=== PATIENT | female | born 1970 | race Caucasian/White ===

== ENCOUNTER → 2018-09-17 11:01 | Outpatient (CLI) | payer OTHER, SELFPAY ==
--- NOTE | 2018-09-16 17:27 | PCM.HP.BLA ---
History and Physical Date of Admission: 09/17/18 HISTORY AND PHYSICAL - BREAST COMPLAINT ? Jody Le 1970 ? ? REFERRING PHYSICIAN: ??Kyra Barrios ([facility]), APR* ? CHIEF COMPLAINT:???Abnormal breast imaging-microcalcifications right breast, asymmetry left breast ? HPI: The patient is a 48 year old female with a complaint of?an abnormal mammogram. ?The patient had a mammogram with ultrasound on August 20, 2018 as a follow-up from mammography performed on July 31, 2018 with her previous mammogram performed on July 30, 2017. ? Imaging demonstrated: ? IMPRESSION: SUSPICIOUS OF MALIGNANCY The multiple new calcifications in the right breast inferior medial quadrant middle depth are at an intermediate suspicion for malignancy. ?A stereotactic biopsy is recommended. The asymmetry in the left breast anterior depth inferior region seen on the mediolateral oblique view only is probably benign. ?A follow-up mammogram in 6 months is recommended. ? LIMITED ULTRASOUND OF LEFT BREAST: 08/20/2018 RESULT: Comparison is made to exams dated: ?07/31/2018 mammogram, 07/30/2017 mammogram - [facility], 08/23/2016 mammogram [facility], 07/24/2016 mammogram, and 07/08/2015 mammogram [facility]. ?Real-time ultrasound of the left breast lower aspect was performed. ? Díaz scale images of the real-time examination were reviewed. No abnormalities were seen sonographically in the left breast. IMPRESSION: NEGATIVE There is no sonographic evidence of malignancy. SUMMARY: Findings and recommendations discussed with the patient. Patient scheduled for a surgical consult. Surgical consult for biopsy of calcifications in the RIGHT breast. ? RESULT: TECHNIQUE: The study was acquired using full field digital technology and interpreted from soft copy. Current study was also evaluated with a Computer Aided Detection (CAD). Comparison is made to exams dated: ?07/31/2018 mammogram, 07/30/2017 mammogram [facility], 08/23/2016 mammogram [facility], 07/24/2016 mammogram, and 07/08/2015 mammogram [facility]. ?The tissue of both breasts is heterogeneously dense. This may lower the sensitivity of mammography. There are multiple new calcifications in the right breast inferior medial quadrant middle depth. There is an asymmetry in the left breast anterior depth inferior region seen on the mediolateral oblique view only. ?This is less prominent. No other significant masses or calcifications are seen in either breast. ? The patient denies a history of breast masses. ?She does??perform a self breast exam routinely. ?She notes no skin changes. ?She denies nipple discharge. ?She notes no axillary masses. ?She notes no family history of breast problems. ?She notes no significant breast trauma or breast difficulties in the past. ?She did undergo breast reduction surgery in the past.??She had a complication of a hematoma in the subareolar area of the left breast. ?The left breast is slightly denser and smaller than her right breast. ? The patient has had?0?pregnancies. ??Her last mammogram was 2017. ?Her last menstrual period was 2017. ?Her first menstrual period was at age 12. ? The patient is being seen by me today at the request of?Kyra Barrios ([facility]), APR*?my opinion and advice regarding new microcalcifications in the right breast and question will asymmetry in the left breast.?? ? PAST?MEDICAL?HISTORY PAST MEDICAL HISTORY Diagnosis Date ? BCC (basal cell carcinoma) ? ? 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 Bruno; sees yearly ? Broken ankle ? ? Broken foot ? ? Essential hypertension, benign ? ? HTN (hypertension) ? ? white coat HTN ? Panic disorder ? ? resolved ? ? PAST?SURGICAL?HISTORY PAST SURGICAL HISTORY Procedure Laterality Date ? ESWL FOR GALLSTONES ? ? ? INCIS TENDON SHEATH,RADIAL STYLOID Right 04/26/2018 ? Right 1st dorsal compartment release ? REDUCTION OF LARGE BREAST ? ? ? REVISE MEDIAN N/CARPAL TUNNEL SURG Right 11/02/2017 ? Right carpal tunnel release ? REVISE MEDIAN N/CARPAL TUNNEL SURG Left 11/16/2017 ? Left carpal tunnel release ? TONSILLECTOMY HX ? CURRENT?MEDICATIONS Current Outpatient Medications Medication Sig Dispense Refill ? amLODIPine (NORVASC) 5 mg tablet Take 1 tablet by mouth once daily. 30 tablet 11 ? triamterene-hydrochlorothiazide (MAXZIDE-25MG) 37.5-25 mg per tablet Take 1 tablet by mouth once daily. 90 tablet 3 ? No current facility-administered medications for this visit.? ? ALLERGIES:?Lisinopril; Wellbutrin [Bupropion Hcl] ? PERSONAL HISTORY:? 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 FAMILY HISTORY:? FAMILY?HISTORY FAMILY HISTORY Problem Relation Age of Onset ? Thyroid Mother ?hypothyroidism ? Hypertension Father ? ? Allergies Sister ? ? Hypertension Maternal Grandmother ? ? Thyroid Sister ?hypothyroidism ? REVIEW OF SYMPTOMS: ??The review of systems data was entered by the nurse and reviewed by me ? Nursing Notes: Juan Pang LPN ?09/03/2018 ?3:17 PM ?Signed REVIEW OF SYSTEMS: ?General:???The patient denies fatigue, denies weight loss, denies weight gain, denies feeling hot, and denies feelings of cold. ?Eyes: ?The patient denies glaucoma, denies eye injury/surgery, does not wear glasses or contacts. ?Ear/Nose/Throat: ?The patient denies allergies, denies hayfever, denies ear infections, and denies bloody noses. ?Cardiovascular: ?The patient denies chest pain, denies heart disease, NOTES high blood pressure,denies cardiac stent, denies prior heart attack, denies irregular heart beat, denies high cholesterol, ?denies poor circulation, denies heart failure, other cardiac issues, denies claudication, denies cold feet, denies peripheral arterial stent. ?Respiratory: ?The patient denies tuberculosis, denies pneumonia, denies frequent cough, denies pulmonary embolism, denies shortness of breath, and denies coughing up blood. ?Gastrointestinal: ?The patient denies difficulty swallowing, denies acid reflux, denies ulcers, denies vomiting, denies jaundice/hepatitis, denies gallbladder problems, denies black or tarry stools, denies hemorrhoids, denies bleeding from rectum, denies diverticulitis, denies constipation, denies diarrhea, denies loss of stool control, and denies hernias. ?Kidney/Bladder: ?The patient denies kidney stones, denies urine infections, and denies bloody urine. ?Skin: ?The patient NOTES a history of skin cancer, denies bleeding/changing moles, and denies a history of skin rash. ?Neurologic: ?The patient denies a history of epilepsy/convulsions, denies headaches, denies head/spinal injuries, and denies stroke/TIA. ?Psychiatric: ?The patient denies psychiatric medications, denies depression, and denies voices, denies substance abuse. ?Endocrine: ?The patient denies thyroid disorders, denies diabetes, and denies hormonal problems. ?Hematologic: ?The patient denies a history of bruising, denies bleeding, and denies anemia, denies blood clots. ?Infections: ?The patient denies a history of measles and mumps, denies rheumatic fever, and denies sexually transmitted diseases. ?Musculoskeletal: ?The patient denies back pain/injury, denies back problems, denies sciatica, denies knee/foot trouble, denies arthritis, or denies gout. ? ? When was patient's last Mammogram screening? 08/04 ? ?Last Colonoscopy: ?N/A ? Juan Pang LPN ? PHYSICAL EXAMINATION: ? General: ?The patient is 48 year old female, well nourished, well hydrated in no acute distress. ?The patient is oriented to time, place, and person. ? VITALS:?Blood pressure 138/72, pulse 106, temperature 36.7 ?C (98 ?F), height 167.6 cm (5' 6), weight 72.3 kg (159 lb 6.4 oz), SpO2 98 %.?Body mass index is 25.73 kg/m?.? ? HEENT: ?Normal cephalic, ataumatic, pupils are equally round, sclera are anicteric, mucous membranes are moist, oropharynx is clear. ?Neck has no masses, asymmetry or lymphadenopathy. ?Thyroid is unremarkable. ? Respiratory: ?Clear to auscultation and percussion. ?Normal respiratory excursion and pattern. ? Cardiac: ?Examination is regular rate and rhythm. ? Abdominal exam: ?Soft, nontender, ?with no palpable masses. ?No hepatosplenomegaly. ?No palpable hernias. ? Rectal exam: ?exam deferred Extremities: ?no clubbing, cyanosis or edema. ?No adenopathy. ? Breast: ?Visual inspection reveals no retractions or skin changes. ?There are incisions bilaterally consistent with breast reduction surgery consistent with a lower midline incision with the submammary fold incisions intact. ?The left nipple is somewhat flatter and retracted consistent with the patient's noted history this is apparently chronic. ?The right nipple appears unremarkable??Palpation of the right breast reveals no dominant or suspicious masses, but multiple benign-feeling nodules. ?Palpation of the left breast reveals no dominant or suspicious masses, but multiple benign-feeling nodules. ?Axillary exam demonstrates no suspicious masses in either the left or right axilla. ?There is no nipple discharge expressed from either the left or right breast. ? LABORATORY VALUES: As Noted ? RADIOLOGIC STUDIES: ?As Noted ? Assessment ? IMPRESSION:?Right lower mid breast microcalcifications-new, vague asymmetry left breast no ultrasound abnormalities ? PLAN:??I plan to perform a?stereotactic biopsy of the right breast. ?The planned surgical procedure was discussed extensively with the patient. ?The risks, benefits, anticipated outcomes and possible complications were mentioned. ?My staff has also explained the procedure in understandable terms and the patient was given the option to take printed material concerning the planned procedure. ?The patient had the opportunity to ask questions concerning the planned procedure. ?The patient freely consents to the planned procedure. ? We will then plan for 6 month bilateral mammogram follow-up for both the left is recommended from above and is a right for post biopsy evaluation ? Diagnoses:?(R92.8) Abnormal finding on breast imaging ?(primary encounter diagnosis) ? My findings have been communicated to??Barrios?via shared medical record. ?This note will be forwarded to Dyana Hood MD. ? Return to Clinic: The patient is instructed to follow-up with me?after the testing has been completed. ? Delmar Nunez MD
--- NOTE | 2018-09-17 | IMM_PTH ---
PATIENT: BRENT IGNACIO LOC: [facility] U#:[id number] AGE/SX: 54/F ROOM: RE09/17/[address]: Dr. Delmar Nunez MD : 1970 BED: DIS: SPEC #: [id number] RECD: 09/20/18 11:37 STATUS: LEIF REQ #: [id number] OPAL: 09/17/18 00:[address]: Delmar Nunez DEPT: IMMUNOHISTOCHEMISTRY RECD BY: Abby Collins ENTERED: 09/20/18 11:38 SP TYPE: IMMUNO OTHR DR: Dr. Dyana Hood MD Tissues: Right breast, NOS Procedures: CALPONIN-1 (add) CK5-6 (add) CK8 (add) E-CAD (add) HER2 GEETA (add) KI-67 (add) P53 (add) DC (add) P40 (add) ER (initial) PHYSICIAN & INSTITUTION [place] [id number] SPECIMEN INFORMATION: Tissue Source: Right breast, stereotactic core biopsy Clinical Info: Right breast calcification inferior medial Specimen Number: [id number] #1 CPT code: 22871, 91877 x6, 91257 x3 METHODOLOGY: Deparaffinized sections of prefer/formalin-fixed tissue or PAP/DQ stained slides are incubated with monoclonal/polyclonal antibodies/oligonucleotide probes. Localization is made via biotin free immunoperoxidase method. Appropriate controls are performed and reacted as expected. Results on target cell population are indicated in the following table: RESULTS: ANTIBODY / CLONE RESULT Block 1 P53 (DO-7) positive, >90% Ki-67 (30-9) positive, moderate CK8 (67sjgtD87) positive Calponin-1 (IN874K) positive P40 (BC28) positive E-Cad (ECH-6) positive CK5-6 (D5 & 1684) positive MORPHOMETRIC ANALYSIS ER (clone 6F11) positive, 60%, weak intensity DC (clone 16/1E2) positive, 5%, weak intensity Her-2Neu (clone CB11) positive, 3+ The prognostic test for HER2 is performed on formalin-fixed paraffin embedded tissue. A 3+ (positive) staining pattern is defined as intense, homogeneous, complete, circumferential membranous staining in >10% of contiguous tumor cells. A similar weak (2+) staining pattern is interpreted as equivocal. BETTINA follow-up testing is recommended for all equivocal cases. Positivity/negativity for ER/DC is reported if > or < 1% of the tumor cells are immuno- reactive, respectively. The ASCO/CAP criteria is used for scoring. Reference: Journal of Clinical Oncology, 2013; 31:2400-4945 & 2010; 16:0489-0975. Duration of fixation: 7 Hrs; Sample Adequate: Yes. These assays have not been validated on decalcified tissues. Results should be interpreted with caution given the likelihood of false negativity on decalcified specimens. These tests were developed and their performance characteristics determined by [facility]. They may not have been cleared or approved by the U.S. Food and Drug Administration. The FDA has determined that such clearance or approval is not necessary. INTERPRETATION: Right breast, stereotactic core biopsy: Ductal carcinoma in situ, grade 3. AM:taiwo 09/23/18
--- NOTE | 2018-09-17 | BRBX_PTH ---
PATIENT: BRENT IGNACIO LOC: [facility] U#:[id number] AGE/SX: 54/F ROOM: RE09/17/[address]: Dr. Delmar Nunez MD : 1970 BED: DIS: SPEC #: [id number] RECD: 09/17/18 14:04 STATUS: LEIF REMiles #: [id number] OPAL: 09/17/18 00:[address]: Delmar Nunez DEPT: SURGICAL PATHOLOGY RECD BY: Keo Nguyen ENTERED: 09/17/18 14:04 SP TYPE: BREAST BX OTHR DR: Dr. Dyana Hood MD Tissues: Right breast, NOS Procedures: Surgery Specimen Level IV HEADER OPERATION: Right breast stereotactic biopsy PRE-OP DIAGNOSIS: Right breast calcifications inferior medial TISSUE SUBMITTED: Right breast core tissue ISCHEMIC TIME: 1 minute FIXATION TIME: 7 hours MICROSCOPIC DIAGNOSIS Right breast, stereotactic needle core biopsy: Ductal carcinoma in situ with the following characteristics: Nuclear grade - 3/3. Maximal length - 3 mm Type - cribriform and comedo with central necrosis. Microcalcifications - present AM:taiwo 09/18/18 COMMENT ER/CO/Lxb3ksy studies are being performed on sections of tumor and the results from this study will be reported separately ([id number]). Case has been reviewed in consultation with Dr. Epps who concurs with the above diagnosis. IDC:SJ MICROSCOPIC DESCRIPTION Slides are reviewed. GROSS DESCRIPTION Received is one container labeled with the patient's name and not further designated. The specimen consists of multiple irregular and elongated fragments of yellow-white soft tissue that in aggregate measure 5.5 x 5 x 0.2 cm. The specimen is totally submitted in two cassettes. / AM:taiwo 09/17/18 TC:0 CPT: 78864
--- NOTE | 2018-09-17 13:36 | OP.PCM_ITS ---
Report of Operation Date of Procedure: 09/17/18 Pre-Operative Diagnosis: right breast microcalcifications Post-Operative Diagnosis: right breast microcalcifications Surgery/Procedure Performed:: right stereotactic breast by with a vacuum- assisted core needle biopsy, specimen radiograph, marker clip placement Type of Anesthesia:: Local Specimen's removed: right breast Description of Procedure: The patient was brought to the stereotactic suite and informed of the plan course of events. The right breast was positioned in the true lateral to medial position on the [place] stereotactic table. Mammographic image demonstrated the area of abnormality to be located in the center of the radiograph. Stereotactic images were then obtained which demonstrated good positioning of the abnormality for biopsy with good stroke pastor parameters. The breast was cleaned with Betadine area did one percent lidocaine was used to anesthetize the skin and a small stab incision made. An 8-gauge mammotome needle was placed into the pre-fire position. Stereotactic images demonstrated good positioning around the planned biopsy site. Local anesthetic injected deeply in the breast. The needle was deployed. Post deployment images demonstrated good positioning of the planned biopsy site. Multiple vacuum-assisted samples were obtained and cembhs-dif-psnad fashion. Specimen radiograph demonstrated micro-calcifications in the sample. A gel marker clip was deployed. Post biopsy images demonstrated good position of the clip relative the biopsy cavity. The breast was removed from compression. Steri-Strips and a dressing applied. Post procedure mammogram images were obtained.
== END ==
PROVIDERS: Family Provider Internal Medicine; PCP Internal Medicine; Referring Provider Surgery; Visit Provider Surgery
DX: D05.11 Intraductal carcinoma in situ of right breast (principal); N64.89 Other specified disorders of breast; I10 Essential (primary) hypertension; Z85.828 Personal history of other malignant neoplasm of skin; Z79.899 Other long term (current) drug therapy
CPT/HCPCS: 19081; 88305; 88341; 88342; J7050; A4648

== ENCOUNTER → 2018-10-17 | Outpatient (CLI) | payer OTHER, SELFPAY ==
--- NOTE | 2018-10-15 05:53 | HP_ITS ---
Intake Vital Signs 10/15/18 Height 5 ft 6 in 10/15/18 Weight: 155 lb 10/15/18 Body Mass Index (BMI) 25.0 10/15/18 Blood Pressure 149/83 H 10/15/18 Blood Pressure Location Rt brachial 10/15/18 Respiratory Rate 16 Intake Visit Reasons: 2ND OPINION STAGE 0 BREAST CA Reg[employer]rar [employer] Required: No Is patient in pain?: No Allergies bupropion [From Wellbutrin] Allergy (Mild, Verified 10/15/18 14:24) other lisinopril Allergy (Mild, Verified 10/15/18 14:24) Unknown Medications amlodipine 5 mg tablet 5 mg PO DAILY 10/15/18 [History Confirmed 10/15/18] triamterene 50 mg capsule 50 mg PO DAILY 10/15/18 [History Confirmed 10/15/18] PFSH Medical History DCIS (ductal carcinoma in situ) (Acute) HTN (hypertension) (Chronic) Surgical History S/P bilateral breast reduction (Acute) S/P carpal tunnel release (Acute) S/P laparoscopic cholecystectomy (Acute) S/P wrist surgery (Acute) Family History Father CAD (coronary artery disease) Hypertension Sister Hypertension Thyroid disorder Mother CAD (coronary artery disease) Thyroid disorder Social History (Updated 10/15/18 @ 17:53 by Abdifatah Curtis MD) Smoking Status: Never smoker alcohol intake: never HPI HPI HPI: BRENT IGNACIO, is a 48 F who presents to the office today for HPI HPI Surgical H&P: Yes HPI: BRENT IGNACIO, is a 48 F who presents to the office today for surgical consultation regarding biopsy-proven DCIS right breast and abnormal mammogram left breast. The patient is self-referred. 48-year-old female. G0. Menarche was age 12. She had a remote excisional left breast biopsy in the for benign disease. She has had bilateral breast reduction surgery. She has not been on any estrogen replacement. Family history is negative for breast cancer. On August 20, 2018 at the [facility] she had bilateral diagnostic mammography and left breast ultrasonography. Multiple new calcifications in the lower inner right breast were felt to have been identified. There is asymmetry in the left breast anterior depth inferior region seen only on the MLO view. A left breast ultrasound was obtained and there was no finding at that time. A stereotactic biopsy was recommended on the right and six-month follow-up on the left. On September 17, 2018 stereotactic needle core biopsy was performed. 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 Estrogen receptor was negative at 60%. Progesterone receptor negative at 5%. HER-2/chanelle positive at 3+. To add to the patient stress that she is recently undergoing a divorce therefore noting the name change from Julio C to Mimi. Patient presents to me for second opinion. She has been previously advised to have a wire localized lumpectomy right breast. Six-month follow-up on the left. ROS General General: Yes weight change and breast cancer; no appetite, fatigue, colon cancer or weakness HEENT HEENT: No difficulty swallowing, eye injury, eye surgery, swollen glands or hoarseness Endo Endocrine: No thyroid disease, diabetes mellitus, thyroid cancer, Hair loss, heat intolerance or cold intolerance Skin Skin: No rash or changing moles Breast Breast: No left breast lump, right breast lump, nipple discharge, breast pain, abnormal mammogram, abnormal US or breast enlargement Musc Musculoskeletal: No back problems, arthritis, rheumatoid arthritis, gout or joint pain Cardio Cardiovascular: Yes high blood pressure; no murmur, pacemaker, heart disease, atrial fibrillation, heart attack, heart stent, palpitations, shortness of breat with exertion or chest pain Psych Psychiatric: No depression, anxiety or hearing voices Resp Respiratory: No shortness of breath, No sleep apnea, No cough, No COPD, No asthma, No emphysema, No wheezing Gastro Gastrointestinal: No abdominal pain, No nausea or vomiting, No diarrhea, No constipation, No blood in stool, No acid reflux, No hemorrhoids, No ulcers, No gallbladder problem, No black,tarry stools Feroz Hematologic: No blood thinners, No blood disorders, No bleeding, No anemia, No blood clots Neuro Neurologic: No system reviewed and no additional complaints, except as docu, No as per HPI, No abnormal walking, No abnormal hearing, No abnormal movements, No abnormal speech, No behavioral changes, No burning sensations, No confusion, No seizure-like activity, No unsteadiness, No dizziness, No localized weakness, No frequent falls, No headache(s), No lack of coordination, No loss of vision, No memory loss, No numbness, No other visual disturbances, No radiating pain, No restless legs, No sensory deficit, No fainting, No tingling, No tremor(s), No weakness, No other Exam Const General: cooperative, healthy appearing, comfortable, no acute distress Nutritional Appearance: average body habitus Orientation: alert [facility] Head: normal to inspection Chest Breast Palpation: No nipple discharge Other: Right breast: Healing incision lower outer right breast with ecchymosis noted and slight induration. No nipple discharge. No axillary or clavicular adenopathy. Well-healed breast reduction incisions Left breast: Left nipple essentially absent and flat. Otherwise well-healed surgical reduction incisions. No focal concerning mass. No axillary or clavicular adenopathy Resp Effort & Inspection: normal respiratory effort Auscultation: clear to auscultation bilaterally Cardio Rate: regular rate Rhythm: regular rhythm Heart Sounds: no murmurs GI Palpation: soft, no hepatosplenomegaly Skin General: no rashes or lesions noted Neuro Cognition: normal cognition Extrem General: no calf tenderness bilaterally Psych Affect: normal affect Assessment & Plan Problems 1. Ductal carcinoma in situ (DCIS) of right breast D05.11 Plan I recommended the patient attempted a stereotactic needle core biopsy left breast anterior depth density only identified on MLO view. If no item can be identified then six-month follow-up would be quite appropriate I recommended the patient a stereotactic wire localized right breast lumpectomy. The microcalcifications are rather diffuse and I recommend double wire localizing] fashion I have extensively discussed with her the technique, benefit, risks, alternatives. Based upon the current pathology I do not believe that right axillary sentinel lymph node biopsy is mandatory. She is aware of the potential risk of invasive carcinoma in the final pathology or positive DCIS margins and the possible requirement for redo lumpectomy or even the possibility of total mastectomy. She has had an opportunity to ask and have questions answered. At this point we will schedule the stereotactic left breast biopsy and then subsequently with definitive right breast surgery. If the patient's pathology on the left is of interest then additional recommendations will be made. I very much appreciate the kind opportunity of assisting with her surgical care. cc: Kyra Barrios, MACHINE OPERATOR TRANSPLANTER Abdifatah Curtis M.D., F.A.C.S. Coding Level of Care Code Off vis,new,level 4 Diagnoses Ductal carcinoma in situ (DCIS) of right breast D05.11 10/15/18 1753 <Electronically signed by Abdifatah jimenez MD> Date _ Abdifatah Curtis MD I have re-examined the patient. There are no clinical changes since date of exam.
[2018-10-15 14:22] VITALS: BMI 25.0
--- NOTE | 2018-10-17 15:24 | BI_ITS ---
MAMMOGRAPHY - UNILATERAL DIAGNOSTIC: LEFT BREAST REASON FOR EXAM: Female, 48 years old. Follow-up for asymmetrical density in the lower aspect of the left breast. PERTINENT HISTORY: Non-contributory. TECHNIQUE: Digital unilateral breast yuval (3D mammographic acquisition) in the CC and MLO projections. 2-D mediolateral oblique (MLO) and craniocaudad (CC) views of the left breast were obtained. CAD: Full Field Digital Mammography with Computer Added Detection was performed. COMPARISON: Comparison is made with prior examination dated July 31, 2018. FINDINGS: Breast Composition: The breasts are heterogeneously dense, which may obscure small masses. There are no dominant masses or suspicious calcifications. No other significant abnormalities are identified. BI/DIAG MAMM W/CAD, UNILAT IMPRESSION: Stable unilateral diagnostic mammogram. One year follow-up mammogram recommended. (A) ASSESSMENT CATEGORY: BIRADS Category 2: Benign. A letter regarding these results will be sent to the patient by the facility within 30 days. Approximately 10% of breast cancers are not detected by mammography. A normal mammogram should not delay biopsy of a clinically suspicious abnormality. Electronically Signed: Errol Mccoy, at 13:27 EDT , Service support ,
--- NOTE | 2018-10-17 15:25 | PCM.OPRPT ---
Problem List (1) Abnormal mammogram of left breast Status: Acute Report of Operation Date of Procedure: 10/17/18 Pre-Operative Diagnosis: Abnormal left mammogram with density seen on MLO view only Post-Operative Diagnosis: No consistent density identified on attempt at stereotactic needle core left breast biopsy Surgery/Procedure Performed:: Attempted stereotactic needle core left breast biopsy with no consistent density identified Description of Surgical Findings:: Timeout and informed consent was obtained. 48-year-old female was taken to the stereotactic unit. She was placed prone on the table. The left breast was placed in a MLO view. The density in question based upon the 0 degree angle was quite vague. Stereotactic images were obtained. On image 1 the area in question completely dissolved away. On image 2 was quite questionable. Upon matching up the 0 degree image and second image I did not feel that the area was consistent enough or abnormal enough that would warrant a biopsy. She was released from the device and tolerated it well. The patient preintervention has had to the left breast mammography. My current recommendations are to pursue today with a 3D left breast mammography. If this demonstrates a definable abnormality then I would recommend a bilateral breast MRI. If no distinct abnormalities identified then conservative follow-up 6 months as was previously previously recommended will be pursued. It is of note that the patient has newly diagnosed DCIS of the right breast. If an MRI abnormality is identified then will make recommendations the patient that she be referred to a center capable of performing MRI guided breast biopsy. Abdifatah Curtis M.D., F.A.C.S.
== END | disposition home or self-care (01) ==
LOC: BIRAD 14:28
PROVIDERS: Family Provider Internal Medicine; PCP Internal Medicine; Referring Provider Surgery; Visit Provider Surgery
DX: D05.11 Intraductal carcinoma in situ of right breast (principal); I10 Essential (primary) hypertension; Z79.899 Other long term (current) drug therapy
CPT/HCPCS: 19081; 77061; 77065; G0279

== ENCOUNTER → 2018-10-28 10:59 | Outpatient (CLI) | payer OTHER, SELFPAY ==
[2018-10-15 14:22] VITALS: BMI 25.0
--- NOTE | 2018-10-28 11:02 | MRI_ITS ---
STUDY: BILATERAL BREAST MR WITHOUT AND WITH CONTRAST REASON FOR EXAM: Female, 48 years old. History of DCIS in the right breast. History of prior breast reduction surgery in 2004. TECHNIQUE: Multi-sequence multi-echo imaging of both breasts was performed with a dedicated breast coil. T1-weighted and T2-weighted images were performed before the administration of contrast. T1-weighted images were also performed after the administration of 14 IV Dotarem without complications. COMPARISON: Mammogram studies dated 07/31/2017, 08/20/2018 and a breast ultrasound dated 08/20/2018. FINDINGS: RIGHT BREAST: The breast tissue is heterogeneously dense with no background enhancement. There is an abnormal enhancing mass based upon MRI kinetics in the inferior portion of the right breast covering an area measuring approximately 7 mm. This is located near the 6:00 position. This is located approximately 5 cm from the nipple. This area was biopsied and shown to represent a malignancy. No other abnormal enhancing or abnormal morphologically appearing masses are seen in the right breast. The axillary lymph nodes appear unremarkable. LEFT BREAST: The breast tissue is heterogeneously dense with no background enhancement. There are no abnormal enhancing masses or areas of non-mass enhancement in the left breast. There are no enlarged or abnormal lymph nodes. There is no abnormality in the visualized regions of the chest or liver. MRI/Breast Bilateral W/O and W IMPRESSION: There is a malignant mass in the right breast. Surgical consultation is recommended as well as radiation oncology and medical oncology consultation. Short-term 6 month follow-up mammogram of the right breast is also recommended to document stability of the postlumpectomy site. CATEGORY: BIRADS Category 6: Known Biopsy-Proven Malignancy - Appropriate Action Should Be Taken. A letter regarding these results will be sent to the patient by the facility within 30 days. Electronically Signed: Kellen Lee DO at 14:05 EDT Tel , Service support ,
== END ==
PROVIDERS: Family Provider Family Medicine; PCP Family Medicine; Referring Provider Surgery; Visit Provider Surgery
DX: C50.919 Malignant neoplasm of unspecified site of unspecified female breast (principal)
CPT/HCPCS: 77049; A9575; A4216; C8908

== ENCOUNTER 2018-11-25 07:28 | Day surgery (SDC) | payer OTHER, SELFPAY ==
[2018-10-15 14:22] VITALS: BMI 25.0
[2018-11-25 07:52] VITALS: BP 147/83; PULSE 60; RESP 16; TEMP 37.7; O2SAT 95; BMI 25.6
--- NOTE | 2018-11-25 08:01 | PCM.HP.BLA ---
Problem List (1) Ductal carcinoma in situ (DCIS) of right breast Status: Acute History and Physical Date of Admission: 11/25/18 [facility] 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 Is patient in pain?: No Allergies bupropion [From Wellbutrin] Allergy (Mild, Verified 10/15/18 14:24) other lisinopril Allergy (Mild, Verified 10/15/18 14:24) Unknown Medications amlodipine 5 mg tablet 5 mg PO DAILY 10/15/18 [History Confirmed 10/15/18] triamterene 50 mg capsule 50 mg PO DAILY 10/15/18 [History Confirmed 10/15/18] PFSH Medical History DCIS (ductal carcinoma in situ) (Acute) HTN (hypertension) (Chronic) Surgical History S/P bilateral breast reduction (Acute) S/P carpal tunnel release (Acute) S/P laparoscopic cholecystectomy (Acute) S/P wrist surgery (Acute) Family History Father CAD (coronary artery disease) Hypertension Sister Hypertension Thyroid disorder Mother CAD (coronary artery disease) Thyroid disorder Social History (Updated 10/15/18 @ 17:53 by Abdifatah Curtis MD) Smoking Status: Never smoker alcohol intake: never Surgical H&P: Yes HPI: Patient presents for an update history and physical in preparation for her upcoming surgical procedure. She denies recent hospitalizations or illnesses. She denies medication changes. She denies previous myocardial infarction, stroke or blood clots. She has never had to see a solar sales representative previously. She denies previous complications with anesthesia. Patient's previous history per Dr. Curtis: BRENT IGNACIO, is a 48 F who presents to the office today for surgical consultation regarding biopsy-proven DCIS right breast and abnormal mammogram left breast. The patient is self-referred. 48-year-old female. G0. Menarche was age 12. She had a remote excisional left breast biopsy in the for benign disease. She has had bilateral breast reduction surgery. She has not been on any estrogen replacement. Family history is negative for breast cancer. On August 20, 2018 at the [facility] she had bilateral diagnostic mammography and left breast ultrasonography. Multiple new calcifications in the lower inner right breast were felt to have been identified. There is asymmetry in the left breast anterior depth inferior region seen only on the MLO view. A left breast ultrasound was obtained and there was no finding at that time. A stereotactic biopsy was recommended on the right and six-month follow-up on the left. On September 17, 2018 stereotactic needle core biopsy was performed. 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 Estrogen receptor was negative at 60%. Progesterone receptor negative at 5%. HER-2/chanelle positive at 3+. To add to the patient stress that she is recently undergoing a divorce therefore noting the name change from Julio C to Mimi. Patient presents to me for second opinion. She has been previously advised to have a wire localized lumpectomy right breast. Six-month follow-up on the left. ROS General General: Yes weight change and breast cancer; no appetite, fatigue, colon cancer or weakness HEENT HEENT: No difficulty swallowing, eye injury, eye surgery, swollen glands or hoarseness Endo Endocrine: No thyroid disease, diabetes mellitus, thyroid cancer, Hair loss, heat intolerance or cold intolerance Skin Skin: No rash or changing moles Breast Breast: No left breast lump, right breast lump, nipple discharge, breast pain, abnormal mammogram, abnormal US or breast enlargement Musc Musculoskeletal: No back problems, arthritis, rheumatoid arthritis, gout or joint pain Cardio Cardiovascular: Yes high blood pressure; no murmur, pacemaker, heart disease, atrial fibrillation, heart attack, heart stent, palpitations, shortness of breat with exertion or chest pain Psych Psychiatric: No depression, anxiety or hearing voices Resp Respiratory: No shortness of breath, No sleep apnea, No cough, No COPD, No asthma, No emphysema, No wheezing Gastro Gastrointestinal: No abdominal pain, No nausea or vomiting, No diarrhea, No constipation, No blood in stool, No acid reflux, No hemorrhoids, No ulcers, No gallbladder problem, No black,tarry stools Feroz Hematologic: No blood thinners, No blood disorders, No bleeding, No anemia, No blood clots Neuro Neurologic: No system reviewed and no additional complaints, except as docu, No as per HPI, No abnormal walking, No abnormal hearing, No abnormal movements, No abnormal speech, No behavioral changes, No burning sensations, No confusion, No seizure-like activity, No unsteadiness, No dizziness, No localized weakness, No frequent falls, No headache(s), No lack of coordination, No loss of vision, No memory loss, No numbness, No other visual disturbances, No radiating pain, No restless legs, No sensory deficit, No fainting, No tingling, No tremor(s), No weakness, No other Exam Const General: cooperative, healthy appearing, comfortable, no acute distress Nutritional Appearance: average body habitus Orientation: alert [facility] Head: normal to inspection Chest Breast Palpation: No nipple discharge Other: Right breast: Healing incision lower outer right breast with ecchymosis noted and slight induration. No nipple discharge. No axillary or clavicular adenopathy. Well-healed breast reduction incisions Left breast: Left nipple essentially absent and flat. Otherwise well-healed surgical reduction incisions. No focal concerning mass. No axillary or clavicular adenopathy Resp Effort & Inspection: normal respiratory effort Auscultation: clear to auscultation bilaterally Cardio Rate: regular rate Rhythm: regular rhythm Heart Sounds: no murmurs GI Palpation: soft, no hepatosplenomegaly Skin General: no rashes or lesions noted Neuro Cognition: normal cognition Extrem General: no calf tenderness bilaterally Psych Affect: normal affect Assessment & Plan Problems 1. Ductal carcinoma in situ (DCIS) of right breast D05.11 Plan: Dr. Curtis will plan to perform a stereotactic wire localized right breast lumpectomy. The microcalcifications are rather diffuse and recommend double wire localizing. fashion I have extensively discussed with her the technique, benefit, risks, alternatives. Based upon the current pathology I do not believe that right axillary sentinel lymph node biopsy is mandatory. She is aware of the potential risk of invasive carcinoma in the final pathology or positive DCIS margins and the possible requirement for redo lumpectomy or even the possibility of total mastectomy. She has had an opportunity to ask and have questions answered. Patient has had the opportunity to ask and have questions answered. Patient verbally understands and agrees with the plan. Code Visit Inpatient E&M: 65692 Subs Hosp L1 - Update H&P
--- NOTE | 2018-11-25 08:22 | BI_ITS ---
SURGICAL BREAST SPECIMEN RADIOGRAPH CLINICAL: Document presence of tissue clip marker in biopsy specimen. FINDINGS: Specimen shows presence of tissue clip marker. Electronically Signed: Errol Mccoy, at 10:38 EDT , Service support , BI/Breast Biopsy Specimen
--- NOTE | 2018-11-25 08:43 | PCM.HP.BLA ---
Problem List (1) Ductal carcinoma in situ (DCIS) of right breast Status: Acute History and Physical Date of Admission: 11/25/18 [facility] Medical Records Department [address] [place] [address] History and Physical 11/25/18 0801 MR#: [id number] Acct: [id number] Name: BRENT IGNACIO Rep #: [id number] : 1970 48 From: Aubree Chappell PA-C PCP: Patricia MALIK,Santiago Status: REG SDC Y Location: [place] [address] Problem List (1) Ductal carcinoma in situ (DCIS) of right breast Status: Acute History and Physical Date of Admission: 11/25/18 [facility] 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 Is patient in pain?: No Allergies bupropion [From Wellbutrin] Allergy (Mild, Verified 10/15/18 14:24) other lisinopril Allergy (Mild, Verified 10/15/18 14:24) Unknown Medications amlodipine 5 mg tablet 5 mg PO DAILY 10/15/18 [History Confirmed 10/15/18] triamterene 50 mg capsule 50 mg PO DAILY 10/15/18 [History Confirmed 10/15/18] PFSH Medical History DCIS (ductal carcinoma in situ) (Acute) HTN (hypertension) (Chronic) Surgical History S/P bilateral breast reduction (Acute) S/P carpal tunnel release (Acute) S/P laparoscopic cholecystectomy (Acute) S/P wrist surgery (Acute) Family History Father CAD (coronary artery disease) Hypertension Sister Hypertension Thyroid disorder Mother CAD (coronary artery disease) Thyroid disorder Social History (Updated 10/15/18 @ 17:53 by Abdifatah Curtis MD) Smoking Status: Never smoker alcohol intake: never Surgical H&P: Yes HPI: Patient presents for an update history and physical in preparation for her upcoming surgical procedure. She denies recent hospitalizations or illnesses. She denies medication changes. She denies previous myocardial infarction, stroke or blood clots. She has never had to see a drill press set up operator radial previously. She denies previous complications with anesthesia. Patient's previous history per Dr. Curtis: BRENT IGNACIO, is a 48 F who presents to the office today for surgical consultation regarding biopsy-proven DCIS right breast and abnormal mammogram left breast. The patient is self-referred. 48-year-old female. G0. Menarche was age 12. She had a remote excisional left breast biopsy in the for benign disease. She has had bilateral breast reduction surgery. She has not been on any estrogen replacement. Family history is negative for breast cancer. On August 20, 2018 at the [facility] she had bilateral diagnostic mammography and left breast ultrasonography. Multiple new calcifications in the lower inner right breast were felt to have been identified. There is asymmetry in the left breast anterior depth inferior region seen only on the MLO view. A left breast ultrasound was obtained and there was no finding at that time. A stereotactic biopsy was recommended on the right and six-month follow-up on the left. On September 17, 2018 stereotactic needle core biopsy was performed. 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 Estrogen receptor was negative at 60%. Progesterone receptor negative at 5%. HER-2/chanelle positive at 3+. To add to the patient stress that she is recently undergoing a divorce therefore noting the name change from Julio C to Mimi. Patient presents to me for second opinion. She has been previously advised to have a wire localized lumpectomy right breast. Six-month follow-up on the left. ROS General General: Yes weight change and breast cancer; no appetite, fatigue, colon cancer or weakness HEENT HEENT: No difficulty swallowing, eye injury, eye surgery, swollen glands or hoarseness Endo Endocrine: No thyroid disease, diabetes mellitus, thyroid cancer, Hair loss, heat intolerance or cold intolerance Skin Skin: No rash or changing moles Breast Breast: No left breast lump, right breast lump, nipple discharge, breast pain, abnormal mammogram, abnormal US or breast enlargement Musc Musculoskeletal: No back problems, arthritis, rheumatoid arthritis, gout or joint pain Cardio Cardiovascular: Yes high blood pressure; no murmur, pacemaker, heart disease, atrial fibrillation, heart attack, heart stent, palpitations, shortness of breat with exertion or chest pain Psych Psychiatric: No depression, anxiety or hearing voices Resp Respiratory: No shortness of breath, No sleep apnea, No cough, No COPD, No asthma, No emphysema, No wheezing Gastro Gastrointestinal: No abdominal pain, No nausea or vomiting, No diarrhea, No constipation, No blood in stool, No acid reflux, No hemorrhoids, No ulcers, No gallbladder problem, No black,tarry stools Feroz Hematologic: No blood thinners, No blood disorders, No bleeding, No anemia, No blood clots Neuro Neurologic: No system reviewed and no additional complaints, except as docu, No as per HPI, No abnormal walking, No abnormal hearing, No abnormal movements, No abnormal speech, No behavioral changes, No burning sensations, No confusion, No seizure-like activity, No unsteadiness, No dizziness, No localized weakness, No frequent falls, No headache(s), No lack of coordination, No loss of vision, No memory loss, No numbness, No other visual disturbances, No radiating pain, No restless legs, No sensory deficit, No fainting, No tingling, No tremor(s), No weakness, No other Exam Const General: cooperative, healthy appearing, comfortable, no acute distress Nutritional Appearance: average body habitus Orientation: alert [facility] Head: normal to inspection Chest Breast Palpation: No nipple discharge Other: Right breast: Healing incision lower outer right breast with ecchymosis noted and slight induration. No nipple discharge. No axillary or clavicular adenopathy. Well-healed breast reduction incisions Left breast: Left nipple essentially absent and flat. Otherwise well-healed surgical reduction incisions. No focal concerning mass. No axillary or clavicular adenopathy Resp Effort & Inspection: normal respiratory effort Auscultation: clear to auscultation bilaterally Cardio Rate: regular rate Rhythm: regular rhythm Heart Sounds: no murmurs GI Palpation: soft, no hepatosplenomegaly Skin General: no rashes or lesions noted Neuro Cognition: normal cognition Extrem General: no calf tenderness bilaterally Psych Affect: normal affect Assessment & Plan Problems 1. Ductal carcinoma in situ (DCIS) of right breast D05.11 Plan: Dr. Curtis will plan to perform a stereotactic wire localized right breast lumpectomy. The microcalcifications are rather diffuse and recommend double wire localizing. fashion I have extensively discussed with her the technique, benefit, risks, alternatives. Based upon the current pathology I do not believe that right axillary sentinel lymph node biopsy is mandatory. She is aware of the potential risk of invasive carcinoma in the final pathology or positive DCIS margins and the possible requirement for redo lumpectomy or even the possibility of total mastectomy. She has had an opportunity to ask and have questions answered. Patient has had the opportunity to ask and have questions answered. Patient verbally understands and agrees with the plan. Code Visit Inpatient E&M: 05965 Subs Hosp L1 - Update H&P 11/25/18811 <Electronically signed by Aubree Chappell PA-C> Date Aubree Chappell PA-C Cosigner Signature: Date (if applicable) CC: Aubree Chappell PA-C; Santiago Gomez MD ~ Signed I have re-examined the patient. There are no clinical changes since date of exam.
--- NOTE | 2018-11-25 09:10 | PCM.OPRPT ---
Problem List (1) Ductal carcinoma in situ (DCIS) of right breast Status: Acute Report of Operation Date of Procedure: 11/25/18 Pre-Operative Diagnosis: Ductal carcinoma in situ lower inner right breast Post-Operative Diagnosis: Same Surgery/Procedure Performed:: Stereotactic wire localization lower inner right breast Description of Surgical Findings:: Timeout informed consent was obtained. 48-year-old female was taken to the mammography suite. She was placed prone on the table. The patient previously had a lateral medial approach. Patient was replaced in this approach. Stereotactic images were obtained. The marking clip was readily identified. Single target site was selected as extensive residual microcalcifications could not be identified. The breast was prepped with Betadine. 1% lidocaine was used as local anesthetic. 1/2 cc was used. 20-gauge Kopan's needle was advanced to a depth +15 mm. The wire was displaced. On fast view and repeat cc views were obtained demonstrating adequate localization. She was released from the device sterile dressings were applied. She was subsequently taken to the operating for planned wire localized lumpectomy. Blood loss minimal. No specimens. No drains. Abdifatah Curtis M.D., F.A.C.S. Type of Anesthesia:: Local
--- NOTE | 2018-11-25 09:26 | DCINST_ITS ---
Discharge Diet: No Restrictions Discharge Activity: May Not Drive - for 1-2 days or while taking narcotic pain meds. May shower in (days): 1 Lifting Restrictions: 10 pounds for 1 week. Call your doctor if your incision/area has: Continuous Slow Oozing, Sudden In creased Bleeding Call your doctor if you observe: Fever of 101 or Higher Suture Line Care: Avoid Pulling/Pushing, Avoid Pinching/Bending Remove Dressing in (days):: 1 - Remove bulky dressing tomorrow. May leave any opsite dressing for 3-4 days. Keep dressing in place until your follow-up appointment. Additional Dressing/Incision Instructions:: Remove bulky dressing tomorrow. May leave any opsite dressing for 3-4 days. You may leave Steri-Strips on for an additional 1 week Allergies/Adverse Reactions: Allergies bupropion [From Wellbutrin] Allergy (Mild, Verified 11/19/18 15:52) other lisinopril Allergy (Mild, Verified 11/19/18 15:52) Unknown Medications to take at Discharge amlodipine 5 mg tablet 5 mg PO DAILY 10/15/18 Primary Care Physician: Santiago Gomez MD [Primary Care Provider] - Please Follow Up With: Abdifatah Curtis MD When: [phone] Officew appt approx. 7-10 days
[2018-11-25] MEDS: Lactated Ringers 1,000 ML 15 ML IV (09:30)
--- NOTE | 2018-11-25 09:30 | BREAST_PTH ---
PATIENT: BRENT IGNACIO LOC: [facility] U#:[id number] AGE/SX: 48/F ROOM: RE11/25/[address]: Dr. Abdifatah Curtis MD : 1970 BED: DIS: 11/25/2018 SPEC #: [id number] RECD: 11/25/18 10:15 STATUS: LEIF DOMINGUEZ #: [id number] OPAL: 11/25/18 09:[address]: Abdifatah Curtis DEPT: SURGICAL PATHOLOGY RECD BY: Ritu Che ENTERED: 11/25/18 11:13 SP TYPE: BREAST OTHR DR: Dr. Santiago Gomez MD Tissues: Right breast, NOS Procedures: Surgery Specimen Level V HEADER OPERATION: Breast lumpectomy, NL PRE-OP DIAGNOSIS: Ductal carcinoma in situ (DCIS) of right breast TISSUE SUBMITTED: Right breast mass, short suture - superior, long suture - anterior, long wire - lateral MICROSCOPIC DIAGNOSIS Right breast mass, lumpectomy with needle localization: A minute focus of ductal carcinoma in situ. Changes consistent with previous biopsy site. Focal dense fibrosis of breast tissue. Negative for invasive carcinoma. See cancer summary in the comment section. SJ:taiwo 11/27/18 COMMENT DUCTAL CARCINOMA IN SITU SUMMARY (including previous specimen [id number]): Specimen - partial breast and stereotactic core biopsy Procedure - excision with wire-guided localization and stereotactic core biopsy. Lymph node sampling - no lymph node present Specimen integrity - single intact specimen and stereotactic core biopsy specimen Specimen size: lumpectomy specimen - 6 x 3.5 x 3 cm Stereotactic core biopsy specimen - 5.5 x 5 x 0.2 cm Specimen laterality - right Tumor site - inferior and medial Size (extent) of DCIS - largest focus of DCIS in the stereotactic core biopsy measures 0.3 x 0.3 cm One focus of DCIS is noted in the lumpectomy specimen measuring 0.2 x 0.1 cm Number of blocks with DCIS - 3 (including stereotactic core biopsy) Number of blocks examined - 14 (including stereotactic core biopsy) The DCIS is predominantly present in stereotactic core biopsy specimen. Multiple foci of DCIS are noted in the core biopsy specimen. The tumor is measured microscopically. Histologic type - ductal carcinoma in situ Architectural patterns - cribriform, comedo and solid Nuclear grade - 3/3 Necrosis - present, central (expansive comedo necrosis) in the stereotactic core biopsy only. Margins - Margins uninvolved by DCIS. The tumor is 0.2 cm away from the closest anterior margin. Treatment effect: Response to presurgical (neoadjuvant) therapy - no known presurgical therapy. Lymph nodes - no lymph nodes present. Distant metastasis - not applicable Ancillary Studies from previous specimen ([id number] / [id number]): ER - positive, 60% weak intensity IN - positive, 5% weak intensity Her2 chanelle ([facility]) - positive (3+) Microcalcifications - present in DCIS Clinical history - Please make reference to previous specimen ([id number]) right breast stereotactic needle core biopsy with diagnosis of ductal carcinoma in situ. Pathologic Staging: pTis(DCIS) pNx Mx The above summary is in compliance with [employer] [place] (CAP) Cancer Protocols Checklist and [place] [employer] Committee on Cancer (AJCC), Staging Manual, 8th Ed. Case has been reviewed in consultation with Dr. Patel who concurs with the above diagnosis. IDC:AM MICROSCOPIC DESCRIPTION Slides are reviewed. GROSS DESCRIPTION Received fresh and postfixed in formalin is one container labeled with the patient's name and designated right breast mass, short suture - superior, long suture - anterior, long wire - lateral. The specimen consists of a piece of fibroadipose tissue with needle localization measuring 6 x 35 x 3 cm. Sections reveal a biopsy cavity filled with Gelfoam measuring 1 x 0.5 x 0.5 cm and is 1 cm away from the closest superior margin. A metallic clip is also noted in the biopsy cavity. Sections of the rest of the specimen reveal clifford-yellow adipose cut surfaces mixed with clifford-white fibrous areas. Camera Prototyping Engineer sections are submitted in 12 cassettes as follows: 1??perpendicular medial and lateral margins, 2-6 - biopsy cavity with surrounding tissue including margins, entirely submitted, 7-12 - installation service representative sections of the other area. About 90% of the specimen is submitted. / SJ:rg 11/26/18 TC:0 CPT: 07778
[2018-11-25] MEDS: Bupivacaine Mpf 0.5% 30 ML VIAL (10:23)
--- NOTE | 2018-11-25 10:24 | PCM.OPRPT ---
Problem List (1) Ductal carcinoma in situ (DCIS) of right breast Status: Acute Report of Operation Date of Procedure: 11/25/18 Pre-Operative Diagnosis: DCIS lower inner right breast Post-Operative Diagnosis: DCIS lower mid right breast 6:30 position Surgery/Procedure Performed:: Wire localized right lower breast lumpectomy Description of Surgical Findings:: Timeout and informed consent was obtained. The patient was taken the operating place supine on the table. She underwent general anesthesia. The right arm was wrapped with soft roll and placed at right angles of the table. The right breast was sterilely prepped and draped. Patient had already undergone stereotactic wire localization the wire was exiting laterally. By palpation I felt that the tip of the wire was very close to the 6 o'clock position. The patient has a previous reduction mammoplasty incision. I made a vertical 6 o'clock position incision at the site at the previous incision. Electrocautery dissection was performed. The tip of the wire was identified. I was aware that the bulk of the disease was slightly more proximally which would make it laterally. Circumferential I dissected around the wire to perform the lumpectomy heading laterally. I preserved as much subcutaneous tissue as possible to allow for cosmetic closure. I withdrew the tissue through the inferior mid incision and performed the lumpectomy. There is no palpable residual obvious disease. 4 small hemostatic clips were placed at the 4 corners of the lumpectomy site. Hemostasis was intact with electrocautery. The specimen was sent to mammography. The marking clip appeared to be centralized within the specimen. Hemostasis was intact. The tissues were approximated with multiple interrupted 3-0 Vicryl sub-dermal tissue sutures. Then the skin edges were approximate interrupted 4-0 Monocryl subdermal stitches. Steri-Strips Telfa OpSite dressing bulky dry dressing applied. Sponge and instrument and needle counts were reported to surgically correct Blood loss minimal. Specimen lumpectomy. Drains none. The yvette-incisional area was anesthetized with 30 cc of 0.5% Marcaine. The patient was taken to the recovery area in satisfactory condition without apparent complication. Abdifatah Curtis M.D., F.A.C.S. Type of Anesthesia:: General Anesthesiologist: Mita Coelho
[2018-11-25 10:55] VITALS: BP 135/75; BP 147/83; PULSE 64; RESP 16; TEMP 36.3; O2SAT 99
[2018-11-25 11:00] VITALS: BP 128/75; BP 147/83; PULSE 52; RESP 16; O2SAT 98
[2018-11-25 11:15] VITALS: BP 128/70; BP 147/83; PULSE 54; RESP 16; O2SAT 98
[2018-11-25 11:31] VITALS: BP 117/72; BP 147/83; PULSE 56; RESP 16; TEMP 36.8; O2SAT 100
[2018-11-25 12:35] VITALS: BP 132/95; BP 147/83; PULSE 53; RESP 16; TEMP 37; O2SAT 100
== END 2018-11-25 12:51 | disposition home or self-care (01) ==
LOC: SDC 07:29 → AC 07:30
PROVIDERS: Family Provider Family Medicine; PCP Family Medicine; Referring Provider Surgery; Visit Provider Surgery
PROC: (CPT 19301; principal; 2018-11-25 09:15)
DX: D05.11 Intraductal carcinoma in situ of right breast (principal); N60.31 Fibrosclerosis of right breast; I10 Essential (primary) hypertension; Z85.828 Personal history of other malignant neoplasm of skin; Z79.899 Other long term (current) drug therapy
CPT/HCPCS: 00400; 19301; 19281; 76098; 88307; J7120; J2405